=== PATIENT | female | born 1965 | race African-American/Black ===

== ENCOUNTER 2024-07-05 15:31 | Outpatient (CLI) | payer BC | END 2024-07-05 15:32 | disposition home or self-care (01) | LOC: SCSRAD 15:31 | PROVIDERS: ATTEND Nurse Practitioner Family | DX: S39.012D Strain of muscle, fascia and tendon of lower back, subsequent encounter (principal); M47.816 Spondylosis without myelopathy or radiculopathy, lumbar region | CPT/HCPCS: 72100 ==

== ENCOUNTER 2025-06-30 15:27 | Outpatient (CLI) | payer BC | END 2025-06-30 15:28 | disposition home or self-care (01) | LOC: SCSRAD 15:27 | PROVIDERS: ATTEND Family Medicine | DX: M25.562 Pain in left knee (principal); M17.12 Unilateral primary osteoarthritis, left knee ==